=== PATIENT | female | born 1960 | race Caucasian/White ===

== ENCOUNTER → 2018-05-28 | Outpatient (CLI) | payer BC ==
--- NOTE | 2018-05-28 23:19 | BD ---
EXAMINATION TYPE: Axial Bone Density DATE OF EXAM: 05/28/2018 COMPARISON: NONE CLINICAL HISTORY: 58-year-old female postmenopausal screening Height: 5 FT 41/4 IN Weight: 180 FRAX RISK QUESTIONS: Secondary Osteoporosis: Current Tobacco Use: YES RISK FACTORS HISTORY OF: Surgery to Spine/Hip(right/left)/Wrist (right/left): SPINE When: 80'S Active: [facility] Postmenopausal woman: LATE 40'S Lost more than 2 inches in height since high school: YES MEDICATIONS: Additional Medications: OXYBUTIN Additional History: EXAM MEASUREMENTS: Bone mineral density about the R hip (g/cm2): 1.055 Bone mineral density about the L hip (g/cm2): 1.019 T Score values are as follows -----R Neck: 0.1 -----L Neck: -0.1 -----R Total: 0.5 -----L Total: 0.0 BASELINE Bone mineral density about the R Wrist (g/cm2): Bone mineral density about the L Wrist (g/cm2): 0.624 T Score values are as follows: -----Dist. R+U: -1.2 -----Prox. R+U: -0.6, normal. -----Radius total: -0.8 BASELINE IMPRESSION: Normal (Values between +1 and -1 indicate normal bone mass) as measured in the bilateral hips and lef t wrist. Consider repeating this study in 5 years or sooner if there is some new clinical indication. NOTE: T-SCORE=SD OF THE YOUNG ADULT MEAN.
--- NOTE | 2018-06-03 10:18 | MM ---
Reason for exam: screening (asymptomatic). Last mammogram was performed 9 years and 10 months ago. History: Patient is postmenopausal and is nulliparous. Family history of breast cancer in mother at age 74. Took hormonal contraceptives for 6 months beginning at age 23. Physical Findings: A clinical breast exam by your physician is recommended on an annual basis and results should be correlated with mammographic findings. MG Screening Mammo w CAD Bilateral CC and MLO view(s) were taken. There are scattered fibroglandular densities. Focal asymmetry right upper outer quadrant anterior to middle depth. Otherwise, no discrete abnormality. ASSESSMENT: Incomplete: need additional imaging evaluation, BI-RAD 0 RECOMMENDATION: Special view mammogram of the right breast. If lesion persists on supplemental views, image directed ultrasound is recommended. [facility] will attempt to contact patient to return for supplemental views and ultrasound if indicated.
== END | disposition home or self-care (01) ==
LOC: RADMAMWWP 15:25
PROVIDERS: ATTEND Family Medicine
DX: Z12.31 Encounter for screening mammogram for malignant neoplasm of breast (principal); Z13.820 Encounter for screening for osteoporosis; Z78.0 Asymptomatic menopausal state
CPT/HCPCS: 77067; 77080

== ENCOUNTER → 2018-06-24 | Outpatient (CLI) | payer BC ==
--- NOTE | 2018-06-24 08:51 | MM ---
Reason for exam: additional evaluation requested from abnormal screening. Last mammogram was performed 1 month ago. History: Patient is postmenopausal and is nulliparous. Family history of breast cancer in mother at age 74. Took hormonal contraceptives for 6 months beginning at age 23. Physical Findings: Nurse did not find any significant physical abnormalities on exam. MG 3D Work Up W/Cad RT Spot compression CC, spot compression MLO, and LM view(s) were taken of the right breast. Prior study comparison: May 28, 2018, bilateral MG screening mammo w CAD. July 14, 2008, bilateral digital screening mammogram. There are scattered fibroglandular densities. Focal asymmetry right upper outer quadrant disperses on additional views. No persisting abnormality. These results were verbally communicated with the patient and result sheet given to the patient on 06/24/18. ASSESSMENT: Negative, BI-RAD 1 RECOMMENDATION: Return to routine screening mammogram schedule for both breasts.
== END ==
LOC: RADMAMWWP 08:11
PROVIDERS: ATTEND Family Medicine
DX: R92.8 Other abnormal and inconclusive findings on diagnostic imaging of breast (principal)
CPT/HCPCS: 77061; 77065

== ENCOUNTER → 2018-07-26 | Outpatient (CLI) | payer BC ==
--- NOTE | 2018-07-26 09:09 | FL ---
EXAMINATION TYPE: FL UGI DATE OF EXAM: 07/26/2018 COMPARISON: None HISTORY: Epigastric pain TECHNIQUE: A double air contrast UGI study is performed. FINDINGS: Fundus body and antrum the stomach appear normal. No intraluminal or extramural abnormaliti es are evident. Barium readily empties into the duodenal cap and sweep. Ligament of Treitz is somewha t inferiorly displaced. During the examination some reflux in the distal half of the esophagus to the level of the aortic arc h was noted. Small self reducing sliding type hiatal hernia is present. Tertiary contractions were ev ident. There is complete stripping of the esophageal bolus in the horizontal drinking position. Esoph therese dilates to normal caliber has normal contour to the gastroesophageal junction. IMPRESSIONS: 1. Presbyesophagus. 2. Small self reducing sliding type hiatal hernia. 3. Gastroesophageal reflux. 4. 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
--- NOTE | 2018-07-26 15:06 | US ---
EXAMINATION TYPE: US abdomen complete DATE OF EXAM: 07/26/2018 COMPARISON: NONE CLINICAL HISTORY: R10.13 Epigastric pain. GB removed in 1980's, pain, NPO EXAM MEASUREMENTS: Liver Length: 16.8 cm CBD: 0.9 cm CHD: 0.6 cm Spleen: 10.0 cm Right Kidney: 11.7 x 4.7 x 4.3 cm Left Kidney: 11.0 x 5.0 x 5.3 cm Pancreas: Tail obscured by overlying bowel gas Liver: Appears echogenic and course . Findings are compatible with mild fatty infiltration liver. He patomegaly is present. Gallbladder: Surgically absent Evidence for sonographic Johns's sign: neg CBD: wnl hepatomegaly CHD: wnl Spleen: wnl Right Kidney: wnl Left Kidney: wnl Upper IVC: wnl Abd Aorta: Portions obscured by overlying bowel gas IMPRESSION: 1. Mild fatty infiltration liver.
== END | disposition home or self-care (01) ==
LOC: RADUSWWP 07:19
PROVIDERS: ATTEND Family Medicine
DX: K21.9 Gastro-esophageal reflux disease without esophagitis (principal); K76.0 Fatty (change of) liver, not elsewhere classified; K22.8 Other specified diseases of esophagus; K44.9 Diaphragmatic hernia without obstruction or gangrene
CPT/HCPCS: 74240; 76700

== ENCOUNTER → 2021-02-15 | Outpatient (CLI) | payer BC ==
--- NOTE | 2021-02-17 13:55 | MM ---
Reason for exam: screening (asymptomatic). Last mammogram was performed 2 years and 8 months ago. History: Patient is postmenopausal and is nulliparous. Family history of breast cancer in mother at age 74. Took hormonal contraceptives for 6 months beginning at age 23. Physical Findings: A clinical breast exam by your physician is recommended on an annual basis and results should be correlated with mammographic findings. MG 3D Screening Mammo W/Cad Bilateral CC and MLO view(s) were taken. Prior study comparison: May 28, 2018, bilateral MG screening mammo w CAD. There are scattered fibroglandular densities. No significant changes when compared with prior studies. ASSESSMENT: Benign, BI-RAD 2 RECOMMENDATION: Routine screening mammogram of both breasts in 1 year.
== END | disposition home or self-care (01) ==
LOC: RADMAMWWP 07:35
PROVIDERS: ATTEND Family Medicine
DX: Z12.31 Encounter for screening mammogram for malignant neoplasm of breast (principal); Z78.0 Asymptomatic menopausal state; Z80.3 Family history of malignant neoplasm of breast
CPT/HCPCS: 77063; 77067

== ENCOUNTER → 2022-03-16 | Outpatient (CLI) | payer BC ==
--- NOTE | 2022-03-24 17:46 | MM ---
Reason for Exam: Screening (asymptomatic). Last mammogram was performed 1 year(s) and 1 month(s) ago. Patient History: Menarche at age 10. Patient has no children. Postmenopausal. Hormonal Contraceptives for 6 months from age 23 until age 23. Mother had breast cancer, age 74. Risk Values: Jody 5 year model risk: 3.2%. NCI Lifetime model risk: 12.4%. Prior Study Comparison: 05/28/2018 Bilateral Screening Mammogram, [facility]. 06/24/2018 Right Diagnostic Mammogram, [facility]. 02/15/2021 Bilateral Screening Mammogram, [facility]. Tissue Density: There are scattered fibroglandular densities. Findings: Analyzed By CAD. There is no suspicious group of microcalcifications or new suspicious mass in either breast. Overall Assessment: Negative, BI-RAD 1 Management: Screening Mammogram of both breasts in 1 year. A clinical breast exam by your physician is recommended on an annual basis and results should be correlated with mammographic findings. Electronically signed and approved by: Santiago Peralta DO
== END | disposition home or self-care (01) ==
LOC: RADMAMWWP 16:37
PROVIDERS: ATTEND Family Medicine
DX: Z12.31 Encounter for screening mammogram for malignant neoplasm of breast (principal); Z78.0 Asymptomatic menopausal state; Z80.3 Family history of malignant neoplasm of breast
CPT/HCPCS: 77063; 77067

== ENCOUNTER → 2023-03-19 | Outpatient (CLI) | payer MEDICARE ==
--- NOTE | 2023-03-19 16:13 | BD ---
EXAMINATION TYPE: Axial Bone Density DATE OF EXAM: 03/19/2023 CLINICAL HISTORY: 63 years old Female. ICD-10 CODE: Z78.0 MENOPAUSAL STATE Height: 63.5 in Weight: 190 lbs FRAX RISK QUESTIONS: Current Tobacco Use: yes RISK FACTORS HISTORY OF: Surgery to Spine: l-spine surgery 1995 Active: yes Diet low in dairy products/other sources of calcium: yes Postmenopausal woman: age 46 MEDICATIONS: Additional Medications: blood pressure meds, cholesterol meds, gerd meds, overactive bladder meds EXAM MEASUREMENTS: Bone mineral densitometry was performed using the [employer] System. pt had l-spine surgery Bone mineral density about the R hip (g/cm2): 1.059 Bone mineral density about the L hip (g/cm2): 0.987 T Score values are as follows: -----R Neck: -0.1 -----L Neck: -0.2 -----R Total: 0.4 -----L Total: -0.2 Z Score values are as follows: -----R Neck: 0.9 -----L Neck: 0.8 -----R Total: 1.1 -----L Total: 0.5 Bone mineral density has: Decreased -1.7% since study of: 05/28/2018 Bone mineral density about the L Wrist (g/cm2): 0.562 T Score values are as follows: -----Dist. R+U: -0.8 -----Prox. R+U: -1.2 -----Radius total: -1.9 Z Score values are as follows: -----Dist. R+U: 0.6 -----Prox. R+U: 0.2 -----Radius total: -0.5 Bone mineral density has: Decreased -6.4% since study of: 05/28/2018 FRAX%s: The graph provided illustrates a 6.3% chance for a major osteoporotic fx and a 0.4% chance fo r the hips probability for fx in 10 years time. IMPRESSION: Osteopenia (T Score between -2.5 and -1). There is slightly increased risk of fracture and the patient may be considered for treatment. Re-Screen 2-5 years. NOTE: T-SCORE=SD OF THE YOUNG ADULT MEAN.
--- NOTE | 2023-03-20 22:38 | MM ---
Reason for Exam: Screening (asymptomatic). Last screening mammogram was performed 12 month(s) ago. Patient History: Menarche at age 10. Patient has no children. Postmenopausal. Hormonal Contraceptives for 6 months from age 23 until age 23. Mother had breast cancer, age 74. Risk Values: Jody 5 year model risk: 3.3%. NCI Lifetime model risk: 12.0%. Prior Study Comparison: 06/24/2018 Right Diagnostic Mammogram, [facility]. 02/15/2021 Bilateral Screening Mammogram, [facility]. 03/16/2022 Bilateral MG 3D screening mammo w/cad, [facility]. Tissue Density: There are scattered fibroglandular densities. Findings: Analyzed By CAD. Unchanged upper outer quadrant focal asymmetry on the right. There is no suspicious group of microcalcifications or new suspicious mass in either breast. Overall Assessment: Benign, BI-RAD 2 Management: Screening Mammogram of both breasts in 1 year. See note below in regards to patient's increased 5 year Jody score. Patient should continue monthly self-breast exams. A clinical breast exam by your physician is recommended on an annual basis. This exam should not preclude additional follow-up of suspicious palpable abnormalities. Note on Jody scores and lifetime risk: 1. A Jody score greater than 3% is considered moderate risk. If this is the case, consider specialist referral to assess eligibility for a risk reducing agent. 2. If overall lifetime risk for the development of breast cancer is 20% or higher, the patient may qualify for future screening with alternating mammogram and breast MRI. Electronically signed and approved by: Valentina Pittman M.D. Radiologist
== END | disposition home or self-care (01) ==
LOC: RADMAMWWP 13:54
PROVIDERS: ATTEND Family Medicine
DX: Z12.31 Encounter for screening mammogram for malignant neoplasm of breast (principal); M85.89 Other specified disorders of bone density and structure, multiple sites; Z78.0 Asymptomatic menopausal state; Z80.3 Family history of malignant neoplasm of breast
CPT/HCPCS: 77063; 77067; 77080

== ENCOUNTER 2024-04-22 10:20 | Day surgery (SDC) | payer MEDICARE ==
[2024-04-22] MEDS: IV FLUID CONTINUATION 1,000 ML IV ONE ×2 (10:45→11:05)
[2024-04-22] MEDS: LACTATED RINGERS 1,000 ML IV SCH (10:45)
[2024-04-22 10:50] VITALS: TEMP 88.1
[2024-04-22] MEDS ORDERED: PROPOFOL 10 MG/ML 20 ML VIAL IV ONE (10:52)
[2024-04-22] MEDS ORDERED: LIDOCAINE 1% INJ 10MG/ML (20 ML MDV) ONE (10:52)
--- NOTE | 2024-04-22 11:01 | P.PCN ---
Date of Procedure: 04/22/24 Procedure(s) Performed: BRIEF HISTORY: Patient is a 64-year-old, pleasant, white female scheduled for an upper endoscopy as a part evaluation of longstanding stable GERD and intermittent abdominal bloating and nausea for the last 3 to 4 months duration. On Protonix 40 mg daily with some relief. PROCEDURE PERFORMED: Esophagogastroduodenoscopy with biopsy. PREOPERATIVE DIAGNOSIS: History of GERD/abdominal bloating/nausea. IV sedation per anesthesia. PROCEDURE: After informed consent was obtained, the patient was brought into the endoscopy unit. IV sedation was administered by Anesthesia under continuous monitoring. Initially the Olympus GIF-140 video endoscope was inserted into the mouth. Esophagus intubated without any difficulty. It was gradually advanced into the stomach and duodenum and carefully examined. The bulb and the second part of the duodenum appeared normal. The scope at this time was withdrawn to the stomach, adequately insufflated with air, and upon careful examination, mucosa of the antrum, linear areas of erythema consistent with gastritis and biopsies were done from this area. Mucosa of the body, cardia and the fundus appeared normal. The scope was then withdrawn into the esophagus. Hiatal hernia noted. The GE junction was located at 35 cm from the incisors. The esophagus appeared normal. There were no erosions or ulcerations seen biopsies were done from the distal esophagus and the patient tolerated the procedure well. IMPRESSION: 1. Mild antral gastritis. 2. Small hiatal hernia but no evidence of esophagitis or Soto's esophagus. RECOMMENDATIONS: The findings of this examination were discussed with the patient as well as her family. She was advised to follow-up with the biopsy results. Continue Protonix 40 mg daily and follow antireflux measures.
[2024-04-22 11:09] VITALS: RESP 16
[2024-04-22 11:27] VITALS: BP 132/78; PULSE 74
== END 2024-04-22 11:51 | disposition home or self-care (01) ==
LOC: ORWHC2ENDO 10:20
PROVIDERS: ATTEND Internal Medicine Gastroenterology
CPT/HCPCS: 43239; 88305